=== PATIENT | male | born 1990 | race Caucasian/White ===

== ENCOUNTER 2016-05-27 13:14 | Outpatient (CLI) | payer BC | END 2016-05-27 13:15 | disposition home or self-care (01) | DX: Z00.00 Encounter for general adult medical examination without abnormal findings (principal) ==

== ENCOUNTER 2018-05-03 13:46 | Outpatient (CLI) | payer BC ==
[2018-05-04 12:52] LABS: HEPATITIS C ANTIBODY NON-REACTIVE (NON-REACTIVE)
[2018-05-04 12:53] LABS: HEPATITIS B SURFACE ANTIGEN NON-REACTIVE (NON-REACTIVE)
[2018-05-04 13:21] LABS: HIV AG/AB 4TH GEN NON-REACTIVE (NON-REACTIVE)
== END 2018-05-03 13:47 | disposition home or self-care (01) ==
LOC: LAB.F 13:46
PROVIDERS: ATTEND Internal Medicine
DX: Z11.3 Encounter for screening for infections with a predominantly sexual mode of transmission (principal)
CPT/HCPCS: 36415; 81599; 86803; 86900; 86901; 87340; 87389

== ENCOUNTER 2023-03-30 14:40 | Outpatient (CLI) | payer OTHER ==
--- NOTE | 2023-03-30 17:09 | XRAY Report ---
PROCEDURE: Thoracic Spine 2 View INDICATIONS: XRAY TECHNIQUE: 3 views of the thoracic spine were acquired. COMPARISON: None. FINDINGS: Bones: Limited evaluation of upper thoracic vertebral bodies on lateral view. No acute fracture or di slocation. Mild anterior height loss of midthoracic vertebral bodies. Bony alignment appears normal. No suspicious bony lesions. 12 pairs of ribs are noted, and appear intact where visualized. Soft tissues: No paravertebral stripe thickening. IMPRESSION: Limited evaluation of upper thoracic vertebral bodies on lateral view. No acute radiographic abnormal ity. Mild anterior height loss of multiple midthoracic vertebral bodies. If there is clinical concern for fracture, recommend cross-sectional imaging such as CT or MRI. Reviewed by: Kathia Doran MD on 03/30/2023 5:08 PM PST Approved by: Kathia Doran MD on 03/30/2023 5:08 PM PST Station ID: [id number]
--- NOTE | 2023-03-30 17:10 | XRAY Report ---
PROCEDURE: Lumbar Spine 2-3V INDICATIONS: XRAY TECHNIQUE: 2 views of the lumbar spine were acquired. COMPARISON: None. FINDINGS: Bones: 5 [id number] vertebrae are present. There is normal bony alignment. Mild discogenic de generative changes at L5-S1. No vertebral body compression fractures. No suspicious bony lesions. Soft tissues: Overlying bowel gas pattern is normal. No suspicious soft tissue calcifications. IMPRESSION: No acute osseous abnormality. Mild discogenic degenerative changes at L5-S1. If pain per sists with conservative management, consider further evaluation with cross-sectional imaging such as CT or MRI. Reviewed by: Kathia Doran MD on 03/30/2023 5:09 PM PST Approved by: Kathia Doran MD on 03/30/2023 5:09 PM PST Station ID: [id number]
--- NOTE | 2023-03-30 17:11 | XRAY Report ---
PROCEDURE: Cervical Spine 2-3V INDICATIONS: XRAY TECHNIQUE: 4 view(s) of the cervical spine were acquired. COMPARISON: None. FINDINGS: Bones: No fractures or dislocations to the C7 level. The lateral masses of C1 appear intact on the odontoid view. No suspicious bony lesions. Soft tissues: No prevertebral soft tissue swelling. IMPRESSION: No acute displaced fracture or traumatic subluxation. If there is ongoing pain with conservative shiva gement, consider cross-sectional imaging with CT or MRI. Reviewed by: Kathia Doran MD on 03/30/2023 5:10 PM PST Approved by: Kathia Doran MD on 03/30/2023 5:10 PM PST Station ID: [id number]
== END 2023-03-30 14:41 | disposition home or self-care (01) ==
LOC: DI.S 14:40
PROVIDERS: ATTEND Chiropractor Neurology
DX: S23.3XXA Sprain of ligaments of thoracic spine, initial encounter (principal); S13.4XXA Sprain of ligaments of cervical spine, initial encounter; M51.37 Other intervertebral disc degeneration, lumbosacral region; M51.34 Other intervertebral disc degeneration, thoracic region

== ENCOUNTER 2023-04-01 14:45 | Outpatient (CLI) | payer OTHER, BC | END 2023-04-01 14:46 | disposition home or self-care (01) | LOC: DI.S 14:45 | PROVIDERS: ATTEND Chiropractor Neurology | DX: Z53.9 Procedure and treatment not carried out, unspecified reason (principal) ==

== ENCOUNTER 2023-04-06 14:36 | Outpatient (CLI) | payer OTHER, BC ==
--- NOTE | 2023-04-06 15:18 | XRAY Report ---
PROCEDURE: Cervical Spine w/Flex/Ext 6+V INDICATIONS: SPRAIN/STRAIN,NECK TECHNIQUE: 7 views of the cervical spine were acquired. COMPARISON: None. FINDINGS: Bones: No fractures or dislocations to the C7 level. No suspicious bony lesions. There is normal r oliver of motion between flexion and extension, with preserved normal bony alignment. Soft tissues: Prevertebral soft tissues are normal in thickness. IMPRESSION: No acute fracture. No osseous lesion. If symptoms and/or clinical suspicion for patholog y continue, further assessment with repeat plain films, or advanced imaging (e.g., CT, MRI, or bone s can) is recommended for further assessment. Reviewed by: Huang Swift MD on 04/06/2023 3:16 PM PST Approved by: Huang Swift MD on 04/06/2023 3:16 PM PST Station ID: [id number]
== END 2023-04-06 14:37 | disposition home or self-care (01) ==
LOC: DI.S 14:36
PROVIDERS: ATTEND Chiropractor Neurology
DX: S13.4XXA Sprain of ligaments of cervical spine, initial encounter (principal)